=== PATIENT | female | born 1975 | race Caucasian/White ===

== ENCOUNTER 2016-09-08 09:03 | Emergency (ER) | payer MEDICAID ==
[~2016-09-08] VITALS: Ht 157.5 cm; Wt 73.2 kg
[~2016-09-08 09:03] MED LIST: AMOX500C PO; MAXA10TA2 PO; NORE1CHW4 CHEW; TRAM50TA PO; TYLETAB34 PO
[2016-09-08 09:09] VITALS: BP 113/69; PULSE 100; RESP 16; TEMP 98.8; O2SAT 100
[2016-09-08] MEDS ORDERED: TYLETAB34 PO (09:36)
[2016-09-08] MEDS ORDERED: CLAR5TAB9 PO (09:36)
[2016-09-08] MEDS ORDERED: MEDR4PAK PO (09:36)
--- NOTE | 2016-09-08 09:36 | PD ---
HPI Chief Complaint: ENT Complaint Time Seen by Provider: 09:16 Travel History International Travel<30 days: No Contact w/Intl Traveler<30days: No Traveled to known affect area: No History of Present Illness HPI The patient is a 40-year-old female who presents emergency department for right ear discomfort of 2 months duration. The patient states she was evaluated in the emergency department in July and diagnosed with right otitis media. The patient has taken several doses of antibiotics and has been on Serotec last 2 months, however, has recurrent right ear pain. The patient complains of fullness, muffled hearing, and occasional "popping "of the right ear with pain. The patient denies any drainage from the right ear and denies any trauma to the right aspect of the head. The patient denies any jaw pain, eye pain, or frontal facial pain. The patient has been referred by her primary physician is [facility] and has an appointment next Tuesday with an ENT physician. The patient is requesting pain medication for the right ear pain. She denies any fever, chills, or sweats. The patient denies any dental pain or dental sensitivities. The patient's symptoms are mild to moderate, possibly exacerbated by recurrent infections of the right ear, and minimally alleviated with antibiotics and antihistamines. PFSH Past Medical History Hx Anticoagulant Therapy: No Bipolar Disorder: Yes Anxiety: Yes Depression: Yes Cardiovascular Problems: No High Cholesterol: Yes Chemotherapy: No Cerebrovascular Accident: No Diabetes: No Diminished Hearing: No Endocrine: No Gastrointestinal Disorders: Yes (GERD) GERD: Yes Genitourinary: No Headaches: Yes (MIGRAINES) Hepatitis: No Hiatal Hernia: No Hypertension: No Immune Disorder: No Kidney Stones: Yes Musculoskeletal: No Neurologic: Yes (MIGRAINES, CHR. HEADACHES) Psychiatric: Yes (BIPOLAR) Reproductive: No Respiratory: No Immunizations Current: Yes Migraines: Yes Thyroid Disease: No ?: Not Menopausal: No : 2 Para: 1 : 1 Ovarian Cysts: Yes Past Surgical History AICD: No Body Medical Devices: NONE Section: Yes (X's 1) Gynecologic Surgery: Yes (C SECTION) Hysterectomy: No Joint Replacement: No Neurologic Surgery: Yes (RADIO FEQ. 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 Reported Meds & Prescriptions Reported Meds & Active Scripts Active Tylenol-Codeine #3 (Acetaminophen-Codeine) 300-30 mg Tab 1 Tab PO Q6H PRN Reported Minastrin 24 Fe (Norethindrone-Ethinyl Estradiol-Fe) 1-20 Mg-Mcg Chew 1 Tab CHEW DAILY Tramadol (Tramadol HCl) 50 Mg Tab 50 Mg PO Q6H PRN Maxalt (Rizatriptan Benzoate) 10 Mg Tab 10 Mg PO Review of Systems Except as stated in HPI: all other systems reviewed are Neg General / Constitutional: No: Fever HENT: Positive: Headaches (history of migraines), Earache, Other (as noted in history of present illness), No: Sore Throat, Rhinitis, Rhinorrhea, Congestion , Neck Pain, Masses, Ear Discharge Respiratory: No: Cough Skin: No Rash Physical Exam Narrative GENERAL: Awake, alert, pleasant 40-year-old female who appears her stated age and is in no acute respiratory distress. SKIN: Warm and dry. No stigmata of shingles over the right aspect of the face. HEAD: Atraumatic. Normocephalic. EYES: Pupils equal and round. No scleral icterus. No injection or drainage. ENT: The left tympanic membrane is translucent and the left EAC is clear. The right tympanic membrane is dull with positive air-fluid level but no bulging or erythema. Right EAC is clear. There is no pre-or postauricular lymphadenopathy noted. The oropharynx reveals postnasal drainage with cobblestoning but no exudate. NECK: Trachea midline. No JVD. No cervical lymphadenopathy noted. MUSCULOSKELETAL: No obvious deformities. No clubbing. No cyanosis. No edema. NEUROLOGICAL: Awake and alert. No obvious cranial nerve deficits. Motor grossly within normal limits. Normal speech. PSYCHIATRIC: Appropriate mood and affect; insight and judgment normal. Data Data Last Documented VS Vital Signs Date Time Temp Pulse Resp B/P Pulse Ox O2 Delivery O2 Flow Rate FiO2 09/08/16 09:09 98.8 100 16 113/69 100 [facility] Medical Decision Making Medical Screen Exam Complete: Yes Emergency Medical Condition: Yes Medical Record Reviewed: Yes Differential Diagnosis Differential diagnosis includes serous otitis, eustachian tube dysfunction, otitis media, otitis externa, [place] Alfonso syndrome, TMJ, referred pain. Narrative Course The patient's physical examination is consistent with otitis serous otitis, most likely secondary to eustachian tube dysfunction. The patient will be advised to stop Zyrtec for 2 weeks, will be placed on Claritin-D twice a day and Medrol Dosepak. She is advised to follow-up with ENT and return if symptoms worsen or progress. Diagnosis Primary Impression: Right serous otitis media Qualified Code: H65.21 - Right chronic serous otitis media Patient Instructions: General Instructions Additional Instructions: Medications as directed. Follow-up with ENT as scheduled. Return if symptoms worsen or progress. Stops Zyrtec while taking Claritin-D. Med/Other Pt SpecificInfo: Prescription(s) given Scripts Methylprednisolone Dosepak (Medrol Dosepak)4 Mg Dspk4 Mg PO DIRECTED #1 DSPK Ref 0 Per Pharmacist direction Prov:Eric Rocha MD 09/08/16 Loratadine-Pseudoephedrine 12 HR (Claritin-D 12 HR)5-120 Mg Tab1 Tab PO BID 14 Days Ref 0 Prov:Eric Rocha MD 09/08/16 Acetaminophen-Codeine (Tylenol-Codeine #3)300-30 mg Tab1 Tab PO Q4H PRN (PAIN) # 20 TAB Ref 0 Prov:Eric Rocha MD 09/08/16 Disposition: 01 DISCHARGE HOME Condition: Stable Eric Rocha MD Sep 08, 2016 09:36
== END 2016-09-08 09:45 | disposition home or self-care (01) ==
LOC: PHED 09:03
DX: H65.21 Chronic serous otitis media, right ear (principal); F31.9 Bipolar disorder, unspecified; Z87.442 Personal history of urinary calculi
CPT/HCPCS: 99282

== ENCOUNTER 2016-09-30 09:32 | Emergency (ER) | payer MEDICAID ==
[~2016-09-30] VITALS: Ht 157.5 cm; Wt 73.0 kg
[~2016-09-30 09:32] MED LIST changes: -AMOX500C PO; +CLAR5TAB9 PO; +MEDR4PAK PO
[2016-09-30 09:35] VITALS: PULSE 70; RESP 16; TEMP 98.4; O2SAT 100
[2016-09-30 09:44] VITALS: BP 148/74
[2016-09-30] MEDS ORDERED: AMOX500T PO (09:54)
[2016-09-30] MEDS ORDERED: NORC5TAB PO (09:54)
[2016-09-30] MEDS ORDERED: ZYRTTAB2 PO (09:54)
--- NOTE | 2016-09-30 09:55 | PD ---
HPI Chief Complaint: ENT Complaint Time Seen by Provider: 09:45 Travel History International Travel<30 days: No Contact w/Intl Traveler<30days: No Traveled to known affect area: No History of Present Illness HPI The patient is a 41-year-old female who presents emergency Department for right ear pain. The patient has a history of chronic right ear pain secondary to chronic infections and fluid behind the right ear. The patient is currently taking Zyrtec as well as Nasacort, however, continues to have symptoms. The patient is scheduled to undergo sinus surgery and to placement of the right ear on October 08, 2016. However, she is complaining of increasing pain and was told not to take any ibuprofen or aspirin 2 weeks leading to the surgery. She has been taking tramadol without any alleviation of her symptoms. She does complain of pressure and muffled hearing from the right ear. She denies any lightheadedness, dizziness, or vertigo. Symptoms are moderate, exacerbated by history of chronic infections, and there are no current alleviating factors. PFSH Past Medical History Hx Anticoagulant Therapy: No Bipolar Disorder: Yes Anxiety: Yes Depression: Yes Cardiovascular Problems: No High Cholesterol: Yes Chemotherapy: No Cerebrovascular Accident: No Diabetes: No Diminished Hearing: No Endocrine: No Gastrointestinal Disorders: Yes (GERD) GERD: Yes Genitourinary: No Headaches: Yes (MIGRAINES) Hepatitis: No Hiatal Hernia: No Hypertension: No Immune Disorder: No Kidney Stones: Yes Musculoskeletal: No Neurologic: Yes (MIGRAINES, CHR. HEADACHES) Psychiatric: Yes (BIPOLAR) Reproductive: No Respiratory: No Immunizations Current: Yes Migraines: Yes Thyroid Disease: No ?: Not LMP: CONTROL Menopausal: No : 2 Para: 1 : 1 Ovarian Cysts: Yes Past Surgical History AICD: No Body Medical Devices: NONE Section: Yes (X's 1) Gynecologic Surgery: Yes (C SECTION) Hysterectomy: No Joint Replacement: No Neurologic Surgery: Yes (RADIO FEQ. 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 Reported Meds & Prescriptions Reported Meds & Active Scripts Active Reported Minastrin 24 Fe (Norethindrone-Ethinyl Estradiol-Fe) 1-20 Mg-Mcg Chew 1 Tab CHEW DAILY Tramadol (Tramadol HCl) 50 Mg Tab 50 Mg PO Q6H PRN Maxalt (Rizatriptan Benzoate) 10 Mg Tab 10 Mg PO Review of Systems General / Constitutional: No: Fever HENT: Positive: Congestion, Earache, No: Ear Discharge Respiratory: No: Cough Physical Exam Narrative GENERAL: Awake, alert, pleasant 41-year-old female who appears her stated age and is in no acute respiratory distress. SKIN: Warm and dry. HEAD: Atraumatic. Normocephalic. EYES: No injection or drainage. ENT: No nasal bleeding or discharge. The left tympanic membrane is translucent and left EAC is clear. The right tympanic membrane is erythematous with positive air-fluid level but no obvious bulging. Right EAC is clear. NECK: Trachea midline. No JVD. MUSCULOSKELETAL: No obvious deformities. No clubbing. No cyanosis. No edema. NEUROLOGICAL: Awake and alert. No obvious cranial nerve deficits. Motor grossly within normal limits. Normal speech. PSYCHIATRIC: Appropriate mood and affect; insight and judgment normal. Data Data Last Documented VS Vital Signs Date Time Temp Pulse Resp B/P Pulse Ox O2 Delivery O2 Flow Rate FiO2 09/30/16 09:44 148/74 09/30/16 09:35 98.4 70 16 100 [facility] Medical Decision Making Medical Screen Exam Complete: Yes Emergency Medical Condition: Yes Medical Record Reviewed: Yes Differential Diagnosis Differential diagnosis includes otitis media, serous otitis, lethargic, malignant otitis externa, otitis externa, sinusitis, eustachian tube dysfunction. Narrative Course The patient has a history of chronic ear infections and fluid behind the right ear, continues to have persistent effusion with erythema, is scheduled to undergo tube placement on the . The patient will be placed on amoxicillin and Zyrtec D. Patient is requesting pain medication and states she cannot take ibuprofen or aspirin 2 weeks prior to surgery, therefore, will be prescribed [place]. Patient is advised to follow-up with ENT as previously directed. Diagnosis Primary Impression: Right serous otitis media Qualified Code: H65.04 - Recurrent acute serous otitis media of right ear Additional Impression: Right acute otitis media Patient Instructions: General Instructions Additional Instructions: Medications as directed. Follow-up with your primary physician and ENT as previously scheduled. Return if symptoms worsen or progress. Med/Other Pt SpecificInfo: Prescription(s) given Scripts Hydrocodone-Acetaminophen ([place])5-325 mg Tab1 Tab PO Q6H PRN (PAIN) #15 TAB Ref 0 Prov:Eric Rocha MD 09/30/16 Amoxicillin 500 Mg [id number] Mg PO TID 10 Days Ref 0 Prov:Eric Rocha MD 09/30/16 Cetirizine-Pseudoephedrine 12 HR (Zyrtec-D Allergy/Congestion 12 HR)5-120 Mg Tab1 Tab PO BID 10 Days Ref 0 Prov:Eric Rocha MD 09/30/16 Disposition: 01 DISCHARGE HOME Condition: Stable Eric Rocha MD Sep 30, 2016 09:55
== END 2016-09-30 10:09 | disposition home or self-care (01) ==
LOC: PHEFT 09:32
DX: H65.04 Acute serous otitis media, recurrent, right ear (principal); E78.00 Pure hypercholesterolemia, unspecified; F41.8 Other specified anxiety disorders; Z87.442 Personal history of urinary calculi; Z87.891 Personal history of nicotine dependence
CPT/HCPCS: 99282

== ENCOUNTER 2016-10-05 11:26 | Emergency (ER) | payer MEDICAID ==
[~2016-10-05] VITALS: Ht 157.5 cm; Wt 72.9 kg
[~2016-10-05 11:26] MED LIST changes: +AMOX500T PO; -CLAR5TAB9 PO; -MEDR4PAK PO; +NORC5TAB PO; -TYLETAB34 PO; +ZYRTTAB2 PO
[2016-10-05 11:33] VITALS: BP 125/81; PULSE 88; RESP 20; TEMP 99; O2SAT 98
--- NOTE | 2016-10-05 11:46 | PD ---
HPI Chief Complaint: Headache Time Seen by Provider: 11:46 Travel History International Travel<30 days: No Contact w/Intl Traveler<30days: No Traveled to known affect area: No History of Present Illness HPI 41-year-old female with history of migraine presents to the ED for evaluation of less than 5 hour history of headache. Patient states the headache is on the right side. She endorses sensitivity to light and sound. She denies blurred vision, dizziness, nausea or vomiting, neurological deficits. She states these symptoms are similar to previous episodes of headache. Patient states that she is prescribed Fioricet and Maxalt by her primary care provider but is currently out of these medications. States that she has a follow-up appointment later this week. PFSH Past Medical History Hx Anticoagulant Therapy: No Bipolar Disorder: Yes Anxiety: Yes Depression: Yes Cardiovascular Problems: No High Cholesterol: Yes Chemotherapy: No Cerebrovascular Accident: No Diabetes: No Diminished Hearing: No Endocrine: No Gastrointestinal Disorders: Yes (GERD) GERD: Yes Genitourinary: No Headaches: Yes (MIGRAINES) Hepatitis: No Hiatal Hernia: No Hypertension: No Immune Disorder: No Kidney Stones: Yes Musculoskeletal: No Neurologic: Yes (MIGRAINES, CHR. HEADACHES) Psychiatric: Yes (BIPOLAR) Reproductive: No Respiratory: No Immunizations Current: Yes Migraines: Yes Thyroid Disease: No Tetanus Vaccination: < 5 Years Influenza Vaccination: Yes ?: Unknown LMP: 4 MONTHS AGO Menopausal: No : 2 Para: 1 : 1 Ovarian Cysts: Yes Past Surgical History AICD: No Body Medical Devices: NONE Section: Yes (X's 1) Gynecologic Surgery: Yes (C SECTION) Hysterectomy: No Joint Replacement: No Neurologic Surgery: Yes (RADIO FEQ. 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 Reported Meds & Prescriptions Reported Meds & Active Scripts Active [place] (Hydrocodone-Acetaminophen) 5-325 mg Tab 1 Tab PO Q6H PRN Amoxicillin 500 Mg Tab 500 Mg PO TID 10 Days Zyrtec-D Allergy/Congestion 12 HR (Cetirizine-Pseudoephedrine 12 HR) 5-120 Mg Tab 1 Tab PO BID 10 Days Reported Minastrin 24 Fe (Norethindrone-Ethinyl Estradiol-Fe) 1-20 Mg-Mcg Chew 1 Tab CHEW DAILY Tramadol (Tramadol HCl) 50 Mg Tab 50 Mg PO Q6H PRN Maxalt (Rizatriptan Benzoate) 10 Mg Tab 10 Mg PO Review of Systems Except as stated in HPI: all other systems reviewed are Neg Physical Exam Narrative GENERAL: Well-nourished, well-developed white female, sitting up with legs crossed on the stretcher in no acute distress. SKIN: Warm and dry. HEAD: Normocephalic. EYES: No scleral icterus. No injection or drainage. PERRLA. EOMI. NECK: Supple, trachea midline. No JVD or lymphadenopathy. CARDIOVASCULAR: Regular rate and rhythm without murmurs, gallops, or rubs. RESPIRATORY: Breath sounds equal bilaterally. No accessory muscle use. GASTROINTESTINAL: Abdomen soft, non-tender, nondistended. MUSCULOSKELETAL: No cyanosis, or edema. NEUROLOGICAL: Awake and alert. Cranial nerves II through XII intact. No pronator drift. Motor and sensory grossly within normal limits. Five out of 5 muscle strength in all muscle groups. Normal speech. BACK: No obvious deformity. Data Data Last Documented VS Vital Signs Date Time Temp Pulse Resp B/P Pulse Ox O2 Delivery O2 Flow Rate FiO2 10/05/16 11:39 Room Air 10/05/16 11:33 99.0 88 20 125/81 98 Orders [facility] 325-50-40 Mg (Fioricet 3 (10/05/16 12:00) MDM Medical Decision Making Medical Screen Exam Complete: Yes Emergency Medical Condition: Yes Differential Diagnosis Cephalgia versus migraine versus drug-seeking behavior versus malingering Narrative Course 41-year-old female with history of migraine presents to the ED for evaluation of less than 5 hour history of headache. Patient states the headache is on the right side. She endorses sensitivity to light and sound. She denies blurred vision, dizziness, nausea or vomiting, neurological deficits. She states these symptoms are similar to previous episodes of headache. Patient states that she is prescribed Fioricet and Maxalt by her primary care provider but is currently out of these medications. States that she has a follow-up appointment later this week. Vitals reviewed. Physical exam reveals a nontoxic-appearing white female in no acute distress. No focal neural deficits. PERRLA. EOMI. Patient was administered a dose of Fioricet. Review of the patient's record reveals that she has been treated for migraine approximately 12 times in the last 12 months. Review of [facility] reveals that the patient has been prescribed to short courses of Fioricet, both times through the emergency room. There is no evidence that she has been provided this medication by her primary care provider in the last 2 years. Patient is overheard to repeatedly ask multiple providers about medication refills. On recheck the patient states that she usually gets improvement of her symptoms within 15-20 minutes of administration of medication. I asked her if she would like to stay for reevaluation. She declines at this time. I informed the patient that I would not write her prescription for Fioricet today. I discussed the information I found on [employer]. The patient had several arguments to dispute the evidence that I presented. She stated that she has "always been able to get refills" in the emergency room. I explained that using the ED for medication refills is inappropriate use of resources, that medications for chronic illnesses should be provided by her primary care provider and are only prescribed at the discretion of the ED provider. The patient is stable and discharged home. Ultimately she left without signing discharge papers. Sepsis Criteria Criteria Outcome: Meets sepsis criteria Diagnosis Primary Impression: Migraine headache without aura Qualified Code: G43.009 - Migraine without aura and without status migrainosus , not intractable Referrals: Primary Care Physician Patient Instructions: General Instructions, Migraine Headache (ED) Additional Instructions: Rest, hydrate. Avoid known stressors. Follow-up with primary care provider for medication refills. Follow-up with primary care provider for further investigation of chronic migraines. Return to the ED for any urgent or emergent medical condition. Disposition: 01 DISCHARGE HOME Condition: Stable Aylin Hanson Oct 05, 2016 11:46
[2016-10-05] MEDS ORDERED: ACETAMIN 325 MG/BUTALBITAL 50 MG/CAFFEINE 40 MG TAB PO ONE (12:00)
== END 2016-10-05 12:20 | disposition home or self-care (01) ==
LOC: PHEFT 11:26
DX: G43.009 Migraine without aura, not intractable, without status migrainosus (principal); E78.00 Pure hypercholesterolemia, unspecified; Z86.59 Personal history of other mental and behavioral disorders; Z87.19 Personal history of other diseases of the digestive system; Z86.69 Personal history of other diseases of the nervous system and sense organs; Z87.442 Personal history of urinary calculi; Z87.891 Personal history of nicotine dependence
CPT/HCPCS: 99283

== ENCOUNTER 2017-03-07 19:00 | Emergency (ER) | payer MEDICAID ==
[~2017-03-07] VITALS: Ht 157.5 cm; Wt 66.6 kg
[2017-03-07 19:21] VITALS: BP 162/74; PULSE 75; RESP 16; TEMP 98.6; O2SAT 100
[2017-03-07] MEDS ORDERED: KETOROLAC TROMETHAMINE 30 MG/ML (IVP) VIAL IV PUSH ONE (21:15)
[2017-03-07] MEDS ORDERED: SODIUM CHLORIDE 0.9% FLUSH 10 ML FLUSH IVF PRN (21:15)
--- NOTE | 2017-03-07 21:24 | PD ---
HPI Chief Complaint: Chest Pain Time Seen by Provider: 21:08 Travel History International Travel<30 days: No Contact w/Intl Traveler<30days: No Traveled to known affect area: No History of Present Illness HPI 41-year-old female here for evaluation of left-sided chest pain. The patient reports that she is in the process of moving homes, and has been doing heavy lifting. She began having left-sided chest discomfort which she stated was sharp, and started yesterday while moving. Pain persisted throughout the day today. Pain is sharp, moderate, intermittently worse at times, worse with movements and inspiration. She denies dyspnea or hemoptysis. No known history of cardiac disease. No history of DVT or PE. No paresthesias or motor deficits. No fevers, chills, cough, or recent illness. PFSH Past Medical History Hx Anticoagulant Therapy: No Bipolar Disorder: Yes Anxiety: Yes Depression: Yes Cardiovascular Problems: No High Cholesterol: Yes Chemotherapy: No Cerebrovascular Accident: No Diabetes: No Diminished Hearing: No Endocrine: No Gastrointestinal Disorders: Yes (GERD) GERD: Yes Genitourinary: No Headaches: Yes (MIGRAINES) Hepatitis: No Hiatal Hernia: No Hypertension: No Immune Disorder: No Kidney Stones: Yes Musculoskeletal: No Neurologic: Yes (MIGRAINES, CHR. HEADACHES) Psychiatric: Yes (BIPOLAR) Reproductive: No Respiratory: No Immunizations Current: No Migraines: Yes Thyroid Disease: No Tetanus Vaccination: Unknown Influenza Vaccination: Yes ?: Not Menopausal: No : 2 Para: 1 : 1 Ovarian Cysts: Yes Past Surgical History AICD: No Body Medical Devices: NONE Section: Yes Gynecologic Surgery: Yes (C SECTION) Hysterectomy: No Joint Replacement: No Neurologic Surgery: Yes (RADIO FEQ. 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 Reported Meds & Prescriptions Reported Meds & Active Scripts Active [place] (Hydrocodone-Acetaminophen) 5-325 mg Tab 1 Tab PO Q6H PRN Amoxicillin 500 Mg Tab 500 Mg PO TID 10 Days Zyrtec-D Allergy/Congestion 12 HR (Cetirizine-Pseudoephedrine 12 HR) 5-120 Mg Tab 1 Tab PO BID 10 Days Reported Minastrin 24 Fe (Norethindrone-Ethinyl Estradiol-Fe) 1-20 Mg-Mcg Chew 1 Tab CHEW DAILY Tramadol (Tramadol HCl) 50 Mg Tab 50 Mg PO Q6H PRN Maxalt (Rizatriptan Benzoate) 10 Mg Tab 10 Mg PO Review of Systems Except as stated in HPI: all other systems reviewed are Neg Physical Exam Narrative GENERAL: Well-developed, well-nourished, no apparent distress. SKIN: Focused skin assessment warm/dry. No rash. HEAD: Atraumatic. Normocephalic. EYES: Pupils equal and round. No scleral icterus. No injection or drainage. ENT: Mucous membranes pink and moist. NECK: Trachea midline. No JVD. CARDIOVASCULAR: Regular rate and rhythm. RESPIRATORY: No accessory muscle use. Clear to auscultation. Breath sounds equal bilaterally. GASTROINTESTINAL: Abdomen soft, non-tender, nondistended. MUSCULOSKELETAL: Exam performed in the presence of female nurse. Left anterior chest with moderate diffuse tenderness without step-off, without crepitus, without paradoxical chest wall movements, without any rash. NEUROLOGICAL: Awake and alert. No obvious cranial nerve deficits. Motor grossly within normal limits. Normal speech. PSYCHIATRIC: Appropriate mood and affect; insight and judgment normal. Data Data Last Documented VS Vital Signs Date Time Temp Pulse Resp B/P Pulse Ox O2 Delivery O2 Flow Rate FiO2 03/07/17 22:07 60 16 100 Room Air 03/07/17 22:05 153/77 03/07/17 19:21 98.6 Orders Basic Metabolic Panel (Bmp) (03/07/17 21:13) Ckmb (Isoenzyme) Profile (03/07/17 21:13) Complete Blood Count With Diff (03/07/17 21:13) D-Dimer (03/07/17 21:13) Prothrombin Time / Inr (Pt) (03/07/17 21:13) Act Partial Throm Time (Ptt) (03/07/17 21:13) Troponin I (03/07/17 21:13) Chest, Single Ap (03/07/17 21:13) Ecg Monitoring (03/07/17 21:13) Iv Access Insert/Monitor (03/07/17 21:13) Oximetry (03/07/17 21:13) Sodium Chloride 0.9% Flush (Ns Flush) (03/07/17 21:15) Ketorolac Inj (Toradol Inj) (03/07/17 21:15) CKMB (03/07/17 21:55) CKMB% (03/07/17 21:55) Labs Laboratory Tests Test 03/07/17 21:55 White Blood Count 8.7 TH/MM3 Red Blood Count 4.19 MIL/MM3 Hemoglobin 13.2 GM/DL Hematocrit 38.7 % Mean Corpuscular Volume 92.3 FL Mean Corpuscular Hemoglobin 31.5 PG Mean Corpuscular Hemoglobin 34.1 % Concent Red Cell Distribution Width 12.7 % Platelet Count 231 TH/MM3 Mean Platelet Volume 8.1 FL Neutrophils (%) (Auto) 57.5 % Lymphocytes (%) (Auto) 34.4 % Monocytes (%) (Auto) 6.0 % Eosinophils (%) (Auto) 1.5 % Basophils (%) (Auto) 0.6 % Neutrophils # (Auto) 5.0 TH/MM3 Lymphocytes # (Auto) 3.0 TH/MM3 Monocytes # (Auto) 0.5 TH/MM3 Eosinophils # (Auto) 0.1 TH/MM3 Basophils # (Auto) 0.1 TH/MM3 CBC Comment DIFF FINAL Differential Comment Prothrombin Time 10.1 SEC Prothromb Time International 0.9 RATIO Ratio Activated Partial 28.0 SEC Thromboplast Time D-Dimer Quantitative (PE/DVT) LESS THAN 0.19 MG/L FEU Sodium Level 140 MEQ/L Potassium Level 3.3 MEQ/L Chloride Level 107 MEQ/L Carbon Dioxide Level 24.2 MEQ/L Anion Gap 9 MEQ/L Blood Urea Nitrogen 11 MG/DL Creatinine 0.78 MG/DL Estimat Glomerular Filtration 81 ML/MIN Rate Random Glucose 90 MG/DL Calcium Level 9.2 MG/DL Total Creatine Kinase 144 U/L Creatine Kinase MB 1.3 NG/ML Troponin I LESS THAN 0.02 NG/ML MDM Medical Decision Making Medical Screen Exam Complete: Yes Emergency Medical Condition: Yes Interpretation(s) EKG: Sinus, rate 59, normal axis, normal intervals, no acute ischemic abnormality. Differential Diagnosis Musculoskeletal chest pain, costochondritis, ACS unlikely, PE unlikely, pleurisy , pneumothorax Narrative Course Vital signs show heart rate 75, blood pressure 162/74, pulse ox 100% on room air , oral temp of 98.6F. CBC is unremarkable. BMP is essentially unremarkable. Cardiac enzymes are negative. D-dimer is negative at less than 0.19. Chest x-ray shows no acute disease. Patient was made aware of all findings. She is resting comfortably. She did have some moderate improvement with Toradol. Symptoms are very musculoskeletal in nature. I do not believe her chest pain is cardiopulmonary in nature. I believe she is stable for discharge home with outpatient follow-up with her primary care physician this week. She was informed on when to return to the emergency department. She verbalizes understanding and agreement with plan. Diagnosis Primary Impression: Chest wall pain Referrals: Primary Care Physician 3 days Additional Instructions: Follow-up with your primary care physician this week. Return to the emergency department for worsening symptoms or any other concerns. Scripts Methocarbamol (Robaxin)500 Mg [id number] Mg PO TID #15 TAB Ref 0 Prov:Tom Early MD 03/07/17 Hydrocodone-Acetaminophen (Lortab)5-325 Mg Tab1 Tab PO Q6H PRN (PAIN) #12 TAB Ref 0 Prov:Tom Early MD 03/07/17 Disposition: 01 DISCHARGE HOME Condition: Stable Tom Early MD Mar 07, 2017 21:24
--- NOTE | 2017-03-07 21:34 | RADRPT ---
EXAM DATE/TIME: 03/07/2017 21:15 [facility] COMPARISON: No previous studies available for comparison. INDICATIONS : Chest pain. MEDICAL HISTORY : None. SURGICAL HISTORY : None. ENCOUNTER: Initial ACUITY: 2 days PAIN SCORE: 4/10 LOCATION: Left chest FINDINGS: A single view of the chest demonstrates the lungs to be symmetrically aerated without evidence of mas s, infiltrate or effusion. The cardiomediastinal contours are unremarkable. Osseous structures are intact. CONCLUSION: No acute disease. Devyn Raza MD on March 07, 2017 at 21:33 Board Certified Radiologist. This report was verified electronically.
[2017-03-07 22:04] VITALS: RESP 18; O2SAT 100
[2017-03-07 22:05] VITALS: BP 153/77; PULSE 58; RESP 16; O2SAT 100
[2017-03-07 22:07] LABS: BASOPHIL # 0.1 TH/MM3 (0-0.2); BASOPHIL % 0.6 % (0.0-2.0); EOSINOPHIL # 0.1 TH/MM3 (0-0.4); EOSINOPHIL % 1.5 % (0.0-4.0); HEMATOCRIT 38.7 % (35.0-46.0); HEMO FLAGS DIFF FINAL; LYMPH % 34.4 % (9.0-44.0); MEAN CELL VOLUME 92.3 FL (80.0-100.0); MEAN CORPUSCULAR HEMOGLOBIN 31.5 PG (27.0-34.0); MEAN CORPUSCULAR HGB CONC 34.1 % (32.0-36.0); NEUT % 57.5 % (16.0-70.0); PLATELET COUNT 231 TH/MM3 (150-450); RED BLOOD COUNT 4.19 MIL/MM3 (4.00-5.30); RED CELL DISTRIBUTION WIDTH 12.7 % (11.6-17.2); WHITE BLOOD COUNT 8.7 TH/MM3 (4.0-11.0)
[2017-03-07 22:28] LABS: CHLORIDE 107 MEQ/L (98-107); POTASSIUM 3.3 MEQ/L (3.5-5.1); SODIUM (NA) 140 MEQ/L (136-145)
[2017-03-07 22:31] LABS: ANION GAP 9 MEQ/L (5-15); BICARBONATE 24.2 MEQ/L (21.0-32.0); BLOOD UREA NITROGEN 11 MG/DL (7-18)
[2017-03-07 22:34] LABS: GLOMERULAR FILTRATION RATE 81 ML/MIN (>89)
[2017-03-07 22:35] LABS: INTERNATIONAL NORMALIZED RATIO 0.9 RATIO; PROTHROMBIN TIME - PATIENT 10.1 SEC (9.8-11.6)
[2017-03-07 22:37] LABS: CREATINE KINASE 144 U/L (26-192)
[2017-03-07 22:50] LABS: CKMB 1.3 NG/ML (0.5-3.6)
[2017-03-07] MEDS ORDERED: HYDR-3533 PO (23:14)
[2017-03-07] MEDS ORDERED: ROBA500T PO (23:14)
[2017-03-07 23:19] VITALS: BP 151/76; PULSE 66; RESP 16; O2SAT 99
--- NOTE | 2017-03-08 12:05 | EKG ---
Date Performed: 03/07/2017 Time Performed: 20:43:29 PTAGE: 41 years EKG: SINUS BRADYCARDIA WITH SINUS ARRHYTHMIA POSSIBLE LEFT ATRIAL ENLARGEMENT BORDERLINE ECG PREVIOUS TRACING : 04/30/2016 18.42 Compared to prior tracing no significant change DOCTOR: Clark Velazquez Interpretating Date/Time 03/08/2017 12:03:22
== END 2017-03-07 23:29 | disposition home or self-care (01) ==
LOC: PHED 19:00
DX: R07.89 Other chest pain (principal)
CPT/HCPCS: 71010; 80048; 82550; 82552; 84484; 85025; 85379; 85610; 85730; 93005; 96374; 99284; J1885

== ENCOUNTER 2017-10-21 05:50 | Emergency (ER) | payer MEDICAID ==
[~2017-10-21] VITALS: Ht 157.5 cm; Wt 59.0 kg
[~2017-10-21 05:50] MED LIST changes: +HYDR-3533 PO; +ROBA500T PO
[2017-10-21 06:00] VITALS: O2SAT 100
[2017-10-21 06:08] VITALS: BP 117/83; PULSE 77; RESP 18; TEMP 98.1; O2SAT 100
[2017-10-21] MEDS ORDERED: BUTA1CAP PO (06:08)
[2017-10-21] MEDS ORDERED: ALBUAER3 INH (06:08)
--- NOTE | 2017-10-21 06:20 | PD ---
HPI Chief Complaint: Chest Pain Time Seen by Provider: 06:00 Travel History International Travel<30 days: No Contact w/Intl Traveler<30days: No Traveled to known affect area: No History of Present Illness HPI The patient is a 42-year-old female that complains of a sharp, pleuritic right- sided chest pain that started initially on the lateral right ribs but now is located at the costochondral junctions of the lower ribs on the right. She denies any nausea, diaphoresis, shortness of breath or radiation of any pain. The pain is constant but is exacerbated by movements and breathing. She denies any fever. She denies any cough. She smokes only E cigarettes. She was last seen here in February for a similar pain. She denies any hemoptysis, tachycardias, syncopal or near syncopal spells. Apparently, Dr. Adkins got a letter from her insurance company advising him not to write any more opiates. She apparently had 4 years ago visited multiple facilities for pain medications. To her credit , she apparently has apparently discontinued this practice and her last visit to this hospital system was in February of last year for chest wall pain. PFSH Past Medical History Hx Anticoagulant Therapy: No Bipolar Disorder: Yes Anxiety: Yes Depression: Yes Cancer: No Cardiovascular Problems: No High Cholesterol: Yes Chemotherapy: No Cerebrovascular Accident: No Diabetes: No Diminished Hearing: No Endocrine: No Gastrointestinal Disorders: Yes (GERD) GERD: Yes Genitourinary: No Headaches: Yes (MIGRAINES) Hepatitis: No Hiatal Hernia: No Hypertension: No Immune Disorder: No Kidney Stones: Yes Medical other: No Musculoskeletal: No Neurologic: Yes (MIGRAINES, CHR. HEADACHES) Psychiatric: Yes (BIPOLAR) Reproductive: No Respiratory: No Immunizations Current: No Migraines: Yes Thyroid Disease: No Tetanus Vaccination: < 5 Years Influenza Vaccination: Yes ?: Not LMP: irreg/depo Menopausal: No : 2 Para: 1 : 1 Ovarian Cysts: Yes Past Surgical History AICD: No Body Medical Devices: NONE Section: Yes Gynecologic Surgery: Yes (C SECTION) Hysterectomy: No Joint Replacement: No Neurologic Surgery: Yes (RADIO FEQ. 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 Reported Meds & Prescriptions Reported Meds & Active Scripts Active Robaxin (Methocarbamol) 500 Mg Tab 500 Mg PO TID Reported Proair Hfa 8.5 GM Inh (Albuterol Sulfate) 90 Mcg/Act Aer 1 Puff INH Q4H PRN 108 mcg/actuation Fioricet (Kmsjycvxjb-Lroibvcijerlp-Xypiuwcy) 50-300-40 Mg Cap 1 Cap PO Q4H PRN Minastrin 24 Fe (Norethindrone-Ethinyl Estradiol-Fe) 1-20 Mg-Mcg Chew 1 Tab CHEW DAILY Maxalt (Rizatriptan Benzoate) 10 Mg Tab 10 Mg PO Review of Systems Except as stated in HPI: all other systems reviewed are Neg Physical Exam Narrative GENERAL: The patient is alert, active, well-hydrated in slight apparent distress with her anterior costochondral junction pain. Her vital signs are normal. SKIN: Focused skin assessment warm/dry. HEAD: Atraumatic. Normocephalic. EYES: Pupils equal and round. No scleral icterus. No injection or drainage. ENT: No nasal bleeding or discharge. Mucous membranes pink and moist. NECK: Trachea midline. No JVD. CARDIOVASCULAR: Regular rate and rhythm. No murmur appreciated. RESPIRATORY: No accessory muscle use. Clear to auscultation. Breath sounds equal bilaterally. I can completely reproduce the patient's pain by pressing on the costochondral junctions of the right lower ribs. There is no crepitus, neither bony nor air. GASTROINTESTINAL: Abdomen soft, non-tender, nondistended. Hepatic and splenic margins not palpable. MUSCULOSKELETAL: No obvious deformities. No clubbing. No cyanosis. No edema. NEUROLOGICAL: Awake and alert. No obvious cranial nerve deficits. Motor grossly within normal limits. Normal speech. PSYCHIATRIC: Appropriate mood and affect; insight and judgment normal. Data Data Last Documented VS Vital Signs Date Time Temp Pulse Resp B/P (MAP) Pulse Ox O2 Delivery O2 Flow Rate FiO2 10/21/17 06:12 77 18 100 Room Air 10/21/17 06:08 98.1 117/83 (94) Orders Orders Electrocardiogram (10/21/17 06:20) Complete Blood Count With Diff (10/21/17 06:20) Comprehensive Metabolic Panel (10/21/17 06:20) D-Dimer (10/21/17 06:20) Magnesium (Mg) (10/21/17 06:20) Troponin I (10/21/17 06:20) Ecg Monitoring (10/21/17 06:20) Iv Access Insert/Monitor (10/21/17 06:20) Oximetry (10/21/17 06:20) Oxygen Administration (10/21/17 06:20) Sodium Chloride 0.9% Flush (Ns Flush) (10/21/17 06:30) Chest, Pa & Lat (10/21/17 06:20) Ketorolac Inj (Toradol Inj) (10/21/17 06:30) Labs Laboratory Tests Test 10/21/17 06:00 White Blood Count 7.8 TH/MM3 Red Blood Count 4.26 MIL/MM3 Hemoglobin 13.0 GM/DL Hematocrit 40.0 % Mean Corpuscular Volume 94.0 FL Mean Corpuscular Hemoglobin 30.6 PG Mean Corpuscular Hemoglobin Concent 32.6 % Red Cell Distribution Width 13.1 % Platelet Count 211 TH/MM3 Mean Platelet Volume 8.9 FL Neutrophils (%) (Auto) 48.8 % Lymphocytes (%) (Auto) 42.2 % Monocytes (%) (Auto) 5.9 % Eosinophils (%) (Auto) 2.5 % Basophils (%) (Auto) 0.6 % Neutrophils # (Auto) 3.8 TH/MM3 Lymphocytes # (Auto) 3.3 TH/MM3 Monocytes # (Auto) 0.5 TH/MM3 Eosinophils # (Auto) 0.2 TH/MM3 Basophils # (Auto) 0.0 TH/MM3 CBC Comment DIFF FINAL Differential Comment Blood Urea Nitrogen 13 MG/DL Random Glucose 94 MG/DL Albumin 3.7 GM/DL Calcium Level 8.4 MG/DL Magnesium Level 2.1 MG/DL Sodium Level 139 MEQ/L Potassium Level 3.4 MEQ/L Chloride Level 107 MEQ/L Carbon Dioxide Level 22.5 MEQ/L Anion Gap 10 MEQ/L [facility] Medical Decision Making Medical Screen Exam Complete: Yes Emergency Medical Condition: Yes Medical Record Reviewed: Yes Differential Diagnosis Costochondritis, rib fracture,, pulmonary embolus-highly unlikely, acute coronary syndrome-highly unlikely, electrolyte imbalance, anemia, hypo-/ hyperglycemia, drug-seeking behavior Narrative Course The patient's pain started in the right lateral chest and is now extended to the anterior costochondral junctions to the thoracic spine, all on the right. It is now 0700 and the patient is transferred to Dr. Sneed. Danielito Mcneil MD Oct 21, 2017 06:20
[2017-10-21] MEDS ORDERED: SODIUM CHLORIDE 0.9% FLUSH 10 ML FLUSH IVF PRN (06:30)
[2017-10-21] MEDS ORDERED: KETOROLAC TROMETHAMINE 30 MG/ML (IVP) VIAL IV PUSH ONE (06:30)
[2017-10-21 06:37] LABS: AUTOMATED NEUTROPHIL # 3.8 TH/MM3 (1.8-7.7); BASOPHIL % 0.6 % (0.0-2.0); EOSINOPHIL # 0.2 TH/MM3 (0-0.4); EOSINOPHIL % 2.5 % (0.0-4.0); LYMPH % 42.2 % (9.0-44.0); LYMPHOCYTE # 3.3 TH/MM3 (1.0-4.8); MEAN CORPUSCULAR HEMOGLOBIN 30.6 PG (27.0-34.0); MEAN CORPUSCULAR HGB CONC 32.6 % (32.0-36.0); MEAN PLATELET VOLUME 8.9 FL (7.0-11.0); MONO % 5.9 % (0.0-8.0); MONOCYTE # 0.5 TH/MM3 (0-0.9); NEUT % 48.8 % (16.0-70.0); PLATELET COUNT 211 TH/MM3 (150-450); RED BLOOD COUNT 4.26 MIL/MM3 (4.00-5.30); RED CELL DISTRIBUTION WIDTH 13.1 % (11.6-17.2); WHITE BLOOD COUNT 7.8 TH/MM3 (4.0-11.0)
[2017-10-21 06:42] LABS: CHLORIDE 107 MEQ/L (98-107); SODIUM (NA) 139 MEQ/L (136-145)
[2017-10-21 06:46] LABS: ALBUMIN 3.7 GM/DL (3.4-5.0); BICARBONATE 22.5 MEQ/L (21.0-32.0); BLOOD UREA NITROGEN 13 MG/DL (7-18); CALCIUM 8.4 MG/DL (8.5-10.1); GLUCOSE,RANDOM 94 MG/DL (74-106); MAGNESIUM 2.1 MG/DL (1.5-2.5)
[2017-10-21 06:49] LABS: ALT (GPT) 18 U/L (10-53); AST (GOT) 13 U/L (15-37); CREATININE 0.99 MG/DL (0.50-1.00); GLOMERULAR FILTRATION RATE 62 ML/MIN (>89)
[2017-10-21 06:51] LABS: TOTAL BILIRUBIN ADULT LESS THAN 0.1 MG/DL (0.2-1.0); TOTAL PROTEIN 7.3 GM/DL (6.4-8.2)
--- NOTE | 2017-10-21 06:51 | RADRPT ---
EXAM DATE/TIME: 10/21/2017 06:38 [facility] COMPARISON: No previous studies available for comparison. INDICATIONS : Right sided chest pain for 3 days MEDICAL HISTORY : None. SURGICAL HISTORY : None. ENCOUNTER: Initial ACUITY: 3 days PAIN SCORE: 7/10 LOCATION: Right chest FINDINGS: There is an acute appearing, mildly displaced fracture laterally of the right fourth rib. No pleural effusion or pneumothorax. No infiltrates. Stable, normal heart size. CONCLUSION: Right fourth rib fracture without pneumothorax or other acute cardiopulmonary disease demonstrated. Luigi Hinojosa MD on October 21, 2017 at 6:49 Board Certified Radiologist. This report was verified electronically.
[2017-10-21 06:52] LABS: ALKALINE PHOSPHATASE 93 U/L (45-117)
[2017-10-21 06:54] LABS: TROPONIN I LESS THAN 0.02 NG/ML (0.02-0.05)
[2017-10-21 07:05] VITALS: BP 133/75; PULSE 87; RESP 16; O2SAT 99
[2017-10-21] MEDS ORDERED: ONDANSETRON HCL 4 MG/2 ML VIAL IV ONE (07:15)
[2017-10-21] MEDS ORDERED: MORPHINE SULFATE 4 MG/ML INJ IV PUSH ONE (07:15)
[2017-10-21] MEDS ORDERED: NORC5TAB PO (07:23)
--- NOTE | 2017-10-21 07:26 | PD ---
Physical Exam Narrative This is a 42-year-old female who presented to the ER for muscular skeletal chest pain, was signed out to me, labs are within normal limits although x-ray shows right fourth rib fracture. Will go ahead and negative for pain management and I recommend that she follow-up with her primary care physician. Patient has history of opioid dependence/abuse. I had a conversation with the patient and she seems to understand that opioid dependence is a serious problem and that our job is to make sure she is safe and try our best to make her pain- free. I explained to her that I would only give her 15 pills of [place] since she says that the tramadol does not work for her but she will need to follow-up with her primary care physician for pain control if needed but hopefully the refraction will heal and the pain will go away on its own. I encouraged her not to come to the ER for pain control since ER is not the right environment for prescribing such medications. Data Data Last Documented VS Vital Signs Date Time Temp Pulse Resp B/P (MAP) Pulse Ox O2 Delivery O2 Flow Rate FiO2 10/21/17 07:05 83 10/21/17 07:05 16 133/75 (94) 99 Room Air 10/21/17 06:08 98.1 Orders Orders Electrocardiogram (10/21/17 06:20) Complete Blood Count With Diff (10/21/17 06:20) Comprehensive Metabolic Panel (10/21/17 06:20) D-Dimer (10/21/17 06:20) Magnesium (Mg) (10/21/17 06:20) Troponin I (10/21/17 06:20) Ecg Monitoring (10/21/17 06:20) Iv Access Insert/Monitor (10/21/17 06:20) Oximetry (10/21/17 06:20) Oxygen Administration (10/21/17 06:20) Sodium Chloride 0.9% Flush (Ns Flush) (10/21/17 06:30) Chest, Pa & Lat (10/21/17 06:20) Ketorolac Inj (Toradol Inj) (10/21/17 06:30) Morphine Inj (Morphine Inj) (10/21/17 07:15) Ondansetron Inj (Zofran Inj) (10/21/17 07:15) Labs Laboratory Tests Test 10/21/17 06:00 White Blood Count 7.8 TH/MM3 Red Blood Count 4.26 MIL/MM3 Hemoglobin 13.0 GM/DL Hematocrit 40.0 % Mean Corpuscular Volume 94.0 FL Mean Corpuscular Hemoglobin 30.6 PG Mean Corpuscular Hemoglobin Concent 32.6 % Red Cell Distribution Width 13.1 % Platelet Count 211 TH/MM3 Mean Platelet Volume 8.9 FL Neutrophils (%) (Auto) 48.8 % Lymphocytes (%) (Auto) 42.2 % Monocytes (%) (Auto) 5.9 % Eosinophils (%) (Auto) 2.5 % Basophils (%) (Auto) 0.6 % Neutrophils # (Auto) 3.8 TH/MM3 Lymphocytes # (Auto) 3.3 TH/MM3 Monocytes # (Auto) 0.5 TH/MM3 Eosinophils # (Auto) 0.2 TH/MM3 Basophils # (Auto) 0.0 TH/MM3 CBC Comment DIFF FINAL Differential Comment D-Dimer Quantitative (PE/DVT) LESS THAN 0.19 MG/L FEU Blood Urea Nitrogen 13 MG/DL Creatinine 0.99 MG/DL Random Glucose 94 MG/DL Total Protein 7.3 GM/DL Albumin 3.7 GM/DL Calcium Level 8.4 MG/DL Magnesium Level 2.1 MG/DL Alkaline Phosphatase 93 U/L Aspartate Amino Transf (AST/SGOT) 13 U/L Alanine Aminotransferase (ALT/SGPT) 18 U/L Total Bilirubin LESS THAN 0.1 MG/DL Sodium Level 139 MEQ/L Potassium Level 3.4 MEQ/L Chloride Level 107 MEQ/L Carbon Dioxide Level 22.5 MEQ/L Anion Gap 10 MEQ/L Estimat Glomerular Filtration Rate 62 ML/MIN Troponin I LESS THAN 0.02 NG/ML [facility] Medical Record Reviewed: Yes Supervised Visit with TIMOTHY: Yes Diagnosis Primary Impression: Right rib fracture Qualified Codes: S22.31XA - Fracture of one rib, right side, initial encounter for closed fracture Scripts Hydrocodone-Acetaminophen ([place]) 5-325 mg Tab 1 TAB PO Q6H Y for PAIN, #15 TAB 0 Refills Prov: Alejandro Sneed MD 10/21/17 Disposition: DISCHARGE HOME Condition: Stable Alejandro Sneed MD Oct 21, 2017 07:26
[2017-10-21 07:40] VITALS: BP 132/71
[2017-10-21] MEDS ORDERED: IBUP-232 PO (07:43)
--- NOTE | 2017-10-22 23:07 | EKG ---
Date Performed: 10/21/2017 Time Performed: 06:02:40 PTAGE: 42 years EKG: Sinus rhythm WITH SINUS ARRHYTHMIA POSSIBLE LEFT ATRIAL ENLARGEMENT BORDERLINE ECG PREVIOUS TRACING : 03/07/2017 20.43 Compared to prior tracing, rate has increased from bradyca rdia DOCTOR: Bertram Keith Interpretating Date/Time 10/22/2017 23:06:20
== END 2017-10-21 07:46 | disposition home or self-care (01) ==
LOC: PHED 05:50
DX: S22.31XA Fracture of one rib, right side, initial encounter for closed fracture (principal); X58.XXXA Exposure to other specified factors, initial encounter; Z79.899 Other long term (current) drug therapy
CPT/HCPCS: 71046; 80053; 83735; 84484; 85025; 85379; 93005; 96374; 96375; 99285; J1885; J2270; J2405

== ENCOUNTER 2017-12-27 08:24 | Emergency (ER) | payer MEDICAID ==
[~2017-12-27] VITALS: Ht 157.5 cm; Wt 60.4 kg
[~2017-12-27 08:24] MED LIST changes: +ALBUAER3 INH; -AMOX500T PO; +BUTA1CAP PO; -HYDR-3533 PO; +IBUP-232 PO; -TRAM50TA PO; -ZYRTTAB2 PO
[2017-12-27 08:27] VITALS: BP 127/60; PULSE 77; RESP 16; TEMP 98.4; O2SAT 98
[2017-12-27] MEDS ORDERED: NORG10TA PO (08:37)
[2017-12-27] MEDS ORDERED: AMOX875T PO (08:47)
[2017-12-27] MEDS ORDERED: NABU1TAB37 PO (08:47)
--- NOTE | 2017-12-27 08:47 | PD ---
HPI . Earache Chief Complaint: ENT Complaint Time Seen by Provider: 08:35 Travel History International Travel<30 days: No Contact w/Intl Traveler<30days: No Traveled to known affect area: No History of Present Illness HPI Patient presents with a chief complaint of a right earache. She is a poor historian. When I asked her when it started she told me that it was a few years ago. She had a myringotomy tube placed in her right ear at that time. She states she has continued to have intermittent problems with her ear since the tube was placed. It seems that this current problem started about 2 days ago. She rates the pain 01/22 with no modifying factors. PFSH Past Medical History Hx Anticoagulant Therapy: No Bipolar Disorder: Yes Anxiety: Yes Depression: Yes Cancer: No Cardiovascular Problems: No High Cholesterol: Yes Chemotherapy: No Cerebrovascular Accident: No Diabetes: No Diminished Hearing: No Endocrine: No Gastrointestinal Disorders: Yes (GERD) GERD: Yes Genitourinary: No Headaches: Yes (MIGRAINES) Hepatitis: No Hiatal Hernia: No Hypertension: No Immune Disorder: No Kidney Stones: Yes Musculoskeletal: No Neurologic: Yes (MIGRAINES, CHR. HEADACHES) Psychiatric: Yes (BIPOLAR) Reproductive: No Respiratory: No Immunizations Current: No Migraines: Yes Thyroid Disease: No Influenza Vaccination: Yes ?: Not LMP: irreg Menopausal: No : 2 Para: 1 : 1 Ovarian Cysts: Yes Past Surgical History AICD: No Body Medical Devices: NONE Section: Yes Gynecologic Surgery: Yes (C SECTION) Hysterectomy: No Joint Replacement: No Neurologic Surgery: Yes (RADIO FEQ. 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 Reported Meds & Prescriptions Reported Meds & Active Scripts Active Reported Trinessa Lo (Norgestimate-Ethinyl Estradiol) 0.18/0.215/0.25 mg-25 Mcg Tab 1 Tab PO DAILY Proair Hfa 8.5 GM Inh (Albuterol Sulfate) 90 Mcg/Act Aer 1 Puff INH Q4H PRN 108 mcg/actuation Fioricet (Lkpoyqwosk-Lisgwzyqksqmk-Swcenkzo) 50-300-40 Mg Cap 1 Cap PO Q4H PRN Maxalt (Rizatriptan Benzoate) 10 Mg Tab 10 Mg PO Review of Systems Except as stated in HPI: all other systems reviewed are Neg Physical Exam Narrative GENERAL: Awake and alert and in no acute distress. SKIN: Warm and dry. HEAD: Normocephalic/atraumatic. EYES: Pupils are equal. Extraocular movements are intact. ENT: Right TM is erythematous. There is no light reflex. There is a myringotomy tube which is outside of the TM. Her left TM looks normal. NECK: Normal range of motion. No cervical lymphadenopathy. CARDIOVASCULAR: Regular rate and rhythm. RESPIRATORY: Nonlabored respirations. MUSCULOSKELETAL: Atraumatic. NEUROLOGICAL: Nonfocal. PSYCHIATRIC: Appropriate mood and affect. Data Data Last Documented VS Vital Signs Date Time Temp Pulse Resp B/P (MAP) Pulse Ox O2 Delivery O2 Flow Rate FiO2 12/27/17 08:27 98.4 77 16 127/60 (82) 98 MDM Medical Decision Making Medical Screen Exam Complete: Yes Emergency Medical Condition: Yes Differential Diagnosis Differential diagnosis of ear pain includes eustachian tube dysfunction, otitis externa, otitis media, TMJ syndrome Narrative Course Patient presents with a chief complaint of right ear pain. She has otitis media on exam. She states that it has been a long time since she has been on antibiotics. Therefore, I will use amoxicillin. The patient is requesting pain pills. I have queried [facility]. She has gotten several prescriptions for controlled substances from several different providers. I will give her a prescription for Relafen. Diagnosis Primary Impression: Right acute otitis media Patient Instructions: Earache (ED), General Instructions Additional Instructions: I would recommend that you eat yogurt a couple of times a day to prevent diarrhea Med/Other Pt SpecificInfo: Prescription(s) given Scripts Nabumetone (Nabumetone) 500 Mg Tab 500 MG PO BID for Pain-Inflammation, #60 TAB 0 Refills Prov: Kelly Ruth MD 12/27/17 Amoxicillin (Amoxicillin) 875 Mg Tab 875 MG PO BID for Infection for 7 Days, #14 TAB 0 Refills Prov: Kelly Ruth MD 12/27/17 Disposition: 01 DISCHARGE HOME Condition: Stable Kelly Ruth MD December 27, 2017 08:47
== END 2017-12-27 09:04 | disposition home or self-care (01) ==
LOC: PHED 08:24
DX: H66.91 Otitis media, unspecified, right ear (principal); E78.00 Pure hypercholesterolemia, unspecified; F31.9 Bipolar disorder, unspecified; F41.9 Anxiety disorder, unspecified; K21.9 Gastro-esophageal reflux disease without esophagitis; Z72.0 Tobacco use
CPT/HCPCS: 99283

== ENCOUNTER 2018-01-23 21:38 | Emergency (ER) | payer MEDICAID ==
[~2018-01-23] VITALS: Ht 170.2 cm; Wt 65.6 kg
[~2018-01-23 21:38] MED LIST changes: +AMOX875T PO; -IBUP-232 PO; +NABU1TAB37 PO; -NORC5TAB PO; -NORE1CHW4 CHEW; +NORG10TA PO; -ROBA500T PO
[2018-01-23 21:59] VITALS: BP 143/64; PULSE 90; RESP 20; TEMP 98.5; O2SAT 99
[2018-01-23] MEDS ORDERED: AUGM875T3 PO (22:42)
--- NOTE | 2018-01-23 22:43 | PD ---
HPI Chief Complaint: ENT Complaint Time Seen by Provider: 22:34 Travel History International Travel<30 days: No Contact w/Intl Traveler<30days: No Traveled to known affect area: No History of Present Illness HPI 42-year-old female presents to the emergency department for complaint of severe ear pain 2 days. Patient has history of previous myringotomy with retained tube. Tube has been in place 18 months. Patient states she is followed by ENT Dr. Reynolds. Patient has had some congestion no sore throat. Patient states she was seen 1 month ago for similar symptoms took the antibiotic symptoms seem to improve but then returned and are worse at this time. Patient denies other concerns or complaints at this time. No report fever chills nausea vomiting cough congestion shortness of breath chest pain neck pain neck stiffness also no myalgias arthralgias or GI complaints. Patient rates pain as 10/10 in intensity. Patient has been taking Relafen for pain relief without improvement. PFSH Past Medical History Narrative Medical Dyslipidemia bipolar disorder recurrent otitis media myringotomy tobacco use nursing notes reviewed Hx Anticoagulant Therapy: No Bipolar Disorder: Yes Anxiety: Yes Depression: Yes Cancer: No Cardiovascular Problems: No High Cholesterol: Yes Chemotherapy: No Cerebrovascular Accident: No Diabetes: No Diminished Hearing: No Endocrine: No Gastrointestinal Disorders: Yes (GERD) GERD: Yes Genitourinary: No Headaches: Yes (MIGRAINES) Hepatitis: No Hiatal Hernia: No Hypertension: No Immune Disorder: No Kidney Stones: Yes Musculoskeletal: No Neurologic: Yes (MIGRAINES, CHR. HEADACHES) Psychiatric: Yes (BIPOLAR) Reproductive: No Respiratory: No Immunizations Current: No Migraines: Yes Thyroid Disease: No Influenza Vaccination: Yes ?: Not LMP: 12/27/17 Menopausal: No : 2 Para: 1 : 1 Ovarian Cysts: Yes Past Surgical History AICD: No Body Medical Devices: NONE Section: Yes Gynecologic Surgery: Yes (C SECTION) Hysterectomy: No Joint Replacement: No Neurologic Surgery: Yes (RADIO FEQ. 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 Reported Meds & Prescriptions Reported Meds & Active Scripts Active Nabumetone 500 Mg Tab 500 Mg PO BID Reported Trinessa Lo (Norgestimate-Ethinyl Estradiol) 0.18/0.215/0.25 mg-25 Mcg Tab 1 Tab PO DAILY Proair Hfa 8.5 GM Inh (Albuterol Sulfate) 90 Mcg/Act Aer 1 Puff INH Q4H PRN 108 mcg/actuation Fioricet (Gttucrxwzx-Yivhvqzqipbwl-Pjwcmllk) 50-300-40 Mg Cap 1 Cap PO Q4H PRN Maxalt (Rizatriptan Benzoate) 10 Mg Tab 10 Mg PO Review of Systems Except as stated in HPI: all other systems reviewed are Neg General / Constitutional: No: Fever HENT: Positive: Congestion, Ear Discharge, Earache Cardiovascular: No: Chest Pain or Discomfort Respiratory: No: Shortness of Breath Gastrointestinal: No: Vomiting, Abdominal Pain Genitourinary: No: Flank Pain Musculoskeletal: No: Myalgias, Arthralgias Skin: No Rash Neurologic: No: Weakness Hematologic/Lymphatic: No: Lymph Node Enlargement Physical Exam Narrative GENERAL: Well-developed well-nourished female no acute respiratory distress. SKIN: Warm and dry. HEAD: Normocephalic. EYES: No scleral icterus. No injection or drainage. ENT: Mucous membranes moist airways patent left tympanic membrane no redness dullness or loss of landmarks right tympanic membrane tympanostomy tube in place with purulent separative otitis media and no drainage from the tympanostomy tube external auditory canal otherwise clear. NECK: Supple, trachea midline. No JVD or lymphadenopathy. CARDIOVASCULAR: Regular rate and rhythm without murmurs, gallops, or rubs. RESPIRATORY: Breath sounds equal bilaterally. No accessory muscle use. GASTROINTESTINAL: Abdomen soft, non-tender, nondistended. MUSCULOSKELETAL: No cyanosis, or edema. BACK: Nontender without obvious deformity. No CVA tenderness. Data Data Last Documented VS Vital Signs Date Time Temp Pulse Resp B/P (MAP) Pulse Ox O2 Delivery O2 Flow Rate FiO2 01/23/18 21:59 98.5 90 20 143/64 (90) 99 MDM Medical Decision Making Medical Screen Exam Complete: Yes Emergency Medical Condition: Yes Medical Record Reviewed: Yes Differential Diagnosis Recurrent otitis media nonfunctioning tympanostomy tube sinusitis Narrative Course Patient given Augmentin 8751 dose and tramadol 50 mg 1 dose Patient is stable for outpatient management but will need to follow-up with your nose and throat specialist for addressing nonfunctioning tympanostomy tube post myringotomy Diagnosis Primary Impression: Right acute otitis media Referrals: Ear / Nose / Throat Specialist call for appointment Patient Instructions: General Instructions Additional Instructions: Increase fluid hydration Follow-up with your primary care provider Follow-up with your nose and throat specialist Take acetaminophen/Tylenol as needed for fever 100.4F or greater Return to the emergency department for any concerns or change in condition Complete course of antibiotic as prescribed Med/Other Pt SpecificInfo: Prescription(s) given Scripts Amoxicillin-Clavulanate (Augmentin) 875-125 Mg Tab 1 TAB PO BID for Infection for 10 Days, #20 TAB 0 Refills Prov: Tran Monsalve MD 01/23/18 Disposition: 01 DISCHARGE HOME Condition: Stable Tran Monsalve MD Jan 23, 2018 22:43
[2018-01-23] MEDS ORDERED: traMADol HCL 50 MG TAB PO ONE (22:45)
[2018-01-23] MEDS ORDERED: AMOXICILLIN/CLAVULANATE K 875 MG TAB PO ONE (22:45)
== END 2018-01-23 22:50 | disposition home or self-care (01) ==
LOC: PHEFT 21:38
DX: H66.91 Otitis media, unspecified, right ear (principal); R09.81 Nasal congestion; F31.9 Bipolar disorder, unspecified; K21.9 Gastro-esophageal reflux disease without esophagitis; F41.9 Anxiety disorder, unspecified; E78.00 Pure hypercholesterolemia, unspecified; F17.290 Nicotine dependence, other tobacco product, uncomplicated; Z87.442 Personal history of urinary calculi; Z79.899 Other long term (current) drug therapy
CPT/HCPCS: 99283